=== PATIENT | female | born 1980 | race Caucasian/White ===

== ENCOUNTER 2018-07-09 15:27 | Emergency (ER) | payer MEDICAID ==
[2018-07-09 15:36] VITALS: BMI 20.9
[2018-07-09 15:39] VITALS: O2SAT 100
[2018-07-09] MEDS ORDERED: Iohexol 240 (50 ml) PO STA (16:36)
--- NOTE | 2018-07-09 16:36 | C.PDOC ---
History Of Present Illness 37 y/o female c/o not having normal bm for a month; pt reports she has passed some small hard stools. pt she has been seen by her pmd and in [facility] ED and twice at [facility] had ct scan and told nothing wrong in ct. pt sts she has tried miralax, laxatives, stool softener, and enemas without any bm. pt denies any current vomiting. pt has never had colonoscopy or been seen by gi, but sts she needed a second surgery after an ovarian cyst removal due to stool retention. Time Seen by Provider: 07/09/18 15:53 Chief Complaint (Nursing): GI Problem History Per: Patient History/Exam Limitations: no limitations Onset/Duration Of Symptoms: Days Current Symptoms Are (Timing): Still Present Past Medical History Reviewed: Historical Data, Nursing Documentation, Vital Signs Vital Signs: Last Vital Signs Temp 97.4 F L 07/09/18 15:36 Pulse 56 L 07/09/18 15:36 Resp 18 07/09/18 15:36 BP 118/80 07/09/18 15:36 Pulse Ox 100 07/09/18 15:36 - Medical History PMH: HTN - Social History Hx Alcohol Use: No Hx Substance Use: No - Immunization History Hx Tetanus Toxoid Vaccination: No Hx Influenza Vaccination: No Hx Pneumococcal Vaccination: No Review Of Systems Constitutional: Negative for: Fever, Chills Gastrointestinal: Positive for: Constipation. Negative for: Vomiting, Diarrhea Physical Exam - Physical Exam Appears: Non-toxic, No Acute Distress Skin: Normal Color, Warm, Dry Head: Atraumatic, Normacephalic Oral Mucosa: Moist Neck: Supple Chest: Symmetrical, No Deformity, No Tenderness Cardiovascular: Rhythm Regular, No Murmur Respiratory: Normal Breath Sounds, No Rales, No Rhonchi, No Wheezing Gastrointestinal/Abdominal: Bowel Sounds, Soft, Tenderness (diffuse, mostly to epigastric and bilateral lower quadrants ), Guarding (voluntary ), No Rebound, Other (vertical surgical scar superior to the umbilicus, down the midline ) Rectal: Hemorrhoids (few, external ), Other (No palpable stool in rectal vault. Travel Director: GUZMAN Carlos ) Extremity: Normal ROM, Capillary Refill (less than 2 seconds ) Neurological/Psych: Normal Speech, Normal Cognition ED Course And Treatment - Laboratory Results Result Diagrams: 07/09/18 16:58 07/09/18 16:58 O2 Sat by Pulse Oximetry: 100 (on RA ) Pulse Ox Interpretation: Normal Medical Decision Making Medical Decision Making: Progress: Bloodwork, urinalysis, CT A/P ordered and reviewed. pt has been resint in no acute distress. ct scan rezsults reviewed. soap suds enema ordered for patient with no resultant bm. Disposition Counseled Patient/Family Regarding: Studies Performed, Diagnosis, Need For Followup, Rx Given - Disposition Referrals: Savannah Guadalupe MD [Medical Doctor] - Callie Villagran MD [Staff Provider] - Disposition: HOME/ ROUTINE Disposition Time: 22:50 Condition: GOOD Additional Instructions: Drink go lytely until you have a bowel movement. 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 High fiber diet., Drink more water. Prescriptions: Ciprofloxacin HCl [Cipro] 500 mg PO BID #14 tablet Metronidazole [Flagyl] 500 mg PO TID #21 tablet Peg Electrolyte Lavage Solut [Golytely] 4,000 ml PO ONCE #1 bottle Instructions: Constipation, Adult (DC), High Fiber Diet, Colitis Forms: [facility] ([place]), General Discharge Instructions - Clinical Impression Clinical Impression: Colitis, Constipation - PA / SUSTAINMENT LOGISTICS ANALYST / Resident Statement MD/DO has reviewed & agrees with the documentation as recorded. - Scribe Statement The provider has reviewed the documentation as recorded by the Scribe (Darlyn Dugan) All medical record entries made by the Scribe were at my direction and personally dictated by me. I have reviewed the chart and agree that the record accurately reflects my personal performance of the history, physical exam, medical decision making, and the department course for this patient. I have also personally directed, reviewed, and agree with the discharge instructions and disposition.
[2018-07-09 17:05] LABS: BASO # 0.1 K/uL (0.0-0.2); BASO % 0.6 % (0.0-2.0); EOS # 0.1 K/uL (0.0-0.7); EOS % 1.1 % (0.0-4.0); HEMOGLOBIN 12.4 g/dL (11.0-16.0); LYMPH # 2.5 K/uL (1.0-4.3); LYMPH % 26.6 % (20.0-40.0); MEAN CELL VOLUME 78.5 fL (81.0-99.0); MEAN CORPUSCULAR HEMOGLOBIN 24.6 pg (27.0-31.0); MEAN CORPUSCULAR HGB CONC 31.4 g/dL (33.0-37.0); MEAN PLATELET VOLUME 9.9 fL (7.2-11.7); MONO # 0.6 K/uL (0.0-0.8); MONO % 6.7 % (0.0-10.0); NEUT # 6.1 K/uL (1.8-7.0); NRBC % 0.1 % (0.0-2.0); RBC 5.04 Mil/uL (3.80-5.20); RED CELL DISTRIBUTION WIDTH 14.7 % (11.5-14.5); WHITE BLOOD COUNT 9.4 K/uL (4.8-10.8)
[2018-07-09 17:18] LABS: ALB/GLOB RATIO 1.2 (1.0-2.1); ALBUMIN 4.9 g/dL (3.5-5.0); BLOOD UREA NITROGEN 10 mg/dL (7-17); CALCIUM 10.2 mg/dl (8.6-10.4); GFR NON-AFRICAN AMERICAN > 60; LIPASE 45 U/L (23-300)
[2018-07-09] MEDS ORDERED: Sodium Chloride 0.9% 1,000 ML IV ONE (17:28)
[2018-07-09 17:34] LABS: ALT/SGPT 8 U/L (9-52); AST/SGOT 25 U/L (14-36)
[2018-07-09] MEDS ORDERED: Iohexol 240 (50 ml) ONE (17:47)
[2018-07-09] MEDS ORDERED: Sodium Chloride 0.9% 1,000 ML ONE (17:47)
[2018-07-09 19:08] LABS: HCG,QUALITATIVE URINE NEGATIVE (NEGATIVE)
[2018-07-09 19:12] LABS: SQUAMOUS EPITHIAL 6 /hpf (0-5); URINE BILIRUBIN NEGATIVE (NEGATIVE); URINE BLOOD 1+ (NEGATIVE); URINE CLARITY Hazy (Clear); URINE COLOR Yellow (YELLOW); URINE GLUCOSE (UA) NORMAL (Normal); URINE LEUKOCYTE ESTERASE 1+ Leu/uL (Negative); URINE PROTEIN NEGATIVE (NEGATIVE); URINE UROBILINOGEN NORMAL mg/dL (0.2-1.0)
[2018-07-09] MEDS ORDERED: Iohexol 300 100 ML IJ ONE (19:54)
[2018-07-09 23:17] VITALS: BP 122/78; PULSE 88; RESP 20; TEMP 98.3
--- NOTE | 2018-07-10 09:27 | CT ---
Date of service: 07/09/2018 PROCEDURE: CT Abdomen and Pelvis with contrast HISTORY: Abdominal pain, constipation. COMPARISON: 11/23/2011. CT abdomen and pelvis. TECHNIQUE: Intravenous contrast dose: 100 cc Omnipaque 300. Radiation dose: Total exam DLP = 252.93. mGy-cm. This CT exam was performed using one or more of the following dose reduction techniques: Automated exposure control, adjustment of the mA and/or kV according to patient size, and/or use of iterative reconstruction technique. FINDINGS: LOWER THORAX: Small hiatal hernia. No abnormalities visualized lung bases. LIVER: Unremarkable. No gross lesion or ductal dilatation. GALLBLADDER AND BILE DUCTS: Unremarkable. PANCREAS: Unremarkable. No gross lesion or ductal dilatation. SPLEEN: Unremarkable. ADRENALS: Unremarkable. No mass. KIDNEYS AND URETERS: Unremarkable. No hydronephrosis. No solid mass. VASCULATURE: Unremarkable. No aortic aneurysm. No atherosclerotic calcification or mural plaque present. BOWEL: Distended colon, constipation. No evidence of fecal impaction or mechanical obstruction. Similar findings identified on the prior CT scan 11/23/2011. APPENDIX: Normal appendix. PERITONEUM: Unremarkable. No free fluid. No free air. LYMPH NODES: Unremarkable. No enlarged lymph nodes. BLADDER: Unremarkable. REPRODUCTIVE: Enlarged, anteverted/myomatous uterus. Similar findings identified previously. BONES: No acute fracture. OTHER FINDINGS: None. IMPRESSION: Constipation, colonic distention without mechanical obstruction. Additional benign and/or incidental findings described above. Overall, no appreciable/significant interval change compared to prior studies. Discordance with the preliminary report, there is no objective evidence for colitis or other acute inflammatory process. Accordingly, and per institutional protocol, the study has been referred to the PA review folder for clinical disposition.
== END 2018-07-09 22:50 | disposition home or self-care (01) ==
LOC: C.ER 15:27
DX: K52.9 Noninfective gastroenteritis and colitis, unspecified (principal); K59.00 Constipation, unspecified
CPT/HCPCS: 74177; 80053; 81001; 81025; 83690; 84703; 85025; 96374; 99285; J1885; J7030; Q9966; Q9967